=== PATIENT | female | born 1965 ===

== ENCOUNTER 2024-12-16 05:14 | Day surgery (SDC) | payer OTHER ==
[2024-12-11 09:38] VITALS: BP 132/81
[2024-12-11 10:09] LABS: BASO % 1.0 % (0.1-1.2); EOS # 0.20 (0.04-0.54); EOS % 4.0 % (0.7-7.0); LYMPH # 1.38 (1.18-3.74); LYMPH % 27.3 % (19.3-53.1); MEAN PLATELET VOLUME 11.60 fl (9.4-12.4); MONO # 0.36 (0.24-0.82); MONO % 7.1 % (4.7-12.5); NEUT # 3.07 (1.56-6.13); NEUT % 60.6 % (34.0-71.1); RED CELL DISTRIBUTION WIDTH 12.9 % (11.6-14.4)
[2024-12-11 10:28] LABS: URINE APPEARANCE Clear; URINE BILIRRUBIN Negative (NEGATIVE); URINE BLOOD Negative; URINE COLOR Yellow; URINE GLUCOSE Negative (NEGATIVE); URINE KETONE Negative (NEGATIVE); URINE LEUKOCYTE Trace; URINE NITRATE Negative; URINE PROTEIN Negative (NEGATIVE); URINE UROBILINOGEN 0.2 E.U./dl
[2024-12-11 10:31] LABS: INR 1.05; URINE BACTERIA 15.5 uL (0.0-1933); URINE EPITHELIAL CELLS 4.9 uL (0.0-38.8); URINE RBC 13.0 uL (0.0-20.8); URINE WBC 4.6 uL (0.0-23.2)
[2024-12-11 10:32] LABS: URINE CAST 0.00 uL (0.0-1.40)
[2024-12-11 10:49] LABS: ALT/SGPT 30.0 U/L (12-78); AST/SGOT 16.0 U/L (15-37); BILIRUBIN TOTAL 0.78 mg/dL (0.3-1.2); BUN CREA RATIO 16.0 (7.0-25.0); CREATININE SERUM 0.63 mg/dL (0.55-1.02); GFR 96.72; GLOBULINA 3.3 G/DL (2.4-3.5); GLUCOSE FASTING 89.0 mg/dL (65-100); OSMOLALITY SERUM 287.0 MOSM/KG (275-295)
[~2024-12-16] VITALS: Ht 165.1 cm; Wt 69.4 kg
[~2024-12-16 05:14] MED LIST: STRESS B WITH1 EACH PO; ZOCOR20 MG PO
[2024-12-16] MEDS ORDERED: CEFOXITIN SODIUM 2,000 MG VIAL IV ONE (07:32)
[2024-12-16] MEDS ORDERED: POVIDONE-IODINE 118 ML BOTT TOP ONE (08:26)
[2024-12-16] MEDS ORDERED: IBU800 MG PO (10:58)
[2024-12-16] MEDS ORDERED: ONDANSETRON HCL 2 MG/ML VIAL IV ONE (11:00)
[2024-12-16] MEDS ORDERED: KETOROLAC TROMETHAMINE 30 MG VIAL IV ONE (11:00)
== END 2024-12-16 16:40 | disposition home or self-care (01) ==
LOC: CIR.AMB 05:14
PROVIDERS: ATTEND Obstetrics & Gynecology
DX: N84.0 Polyp of corpus uteri (principal); N84.1 Polyp of cervix uteri; N93.8 Other specified abnormal uterine and vaginal bleeding